=== PATIENT | female | born 2000 | race American Indian/Alaskan Native ===

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

== ENCOUNTER 2018-01-12 21:18 | Emergency (ER) | payer MEDICAID ==
[2018-01-12 23:20] LABS: HCG Qualitative,Urine Positive (Negative)
[2018-01-12 23:43] LABS: Bilirubin,Urine NEG (Negative); Blood,Urine NEG (Negative); Color,Urine Yellow (Yellow); Mucus,Urine 3+ /HPF
--- NOTE | 2018-01-13 00:53 | Emergency Department Report ---
ED Female HPI - General Chief complaint: Urogenital-Female Stated complaint: VAGINAL PAIN Time Seen by Provider: 01/13/18 00:35 Source: patient Mode of arrival: Ambulatory Limitations: No Limitations - History of Present Illness Initial comments: Patient 17-year-old -[place] female A0 presents for vaginal swelling right labia times today patient denies vaginal discharge or abdominal pain no vaginal bleeding no nausea vomiting last menstrual cycle 4 weeks ago last contact 2 weeks ago patient denies dysuria frequency or urgency fever chills MD Complaint: other (vaginal swelling ) Onset/Timin -: Sudden Location: labia Severity: moderate Severity scale (0 -10): 3 Quality: burning Consistency: intermittent Improves with: none Worsens with: none Are you Now?: No Last Menstrual Period: 01/04/18 EDC: 10/11/18 - Related Data Sexually active: Yes : 0 Para: 0 A: 0 Previous Rx's Medication Instructions Recorded Last Taken Type Sulfamethoxazole/Trimethoprim 1 each PO BID #14 tablet 12/29/14 Unknown Rx [Bactrim DS TAB] Gentamicin 0.3% Ophth Oint 1 applicatio OP Q4H #1 tube 06/13/17 Unknown Rx Ibuprofen [Motrin 600 MG tab] 600 mg PO Q8H PRN #15 tablet 06/13/17 Unknown Rx Sulfamethoxazole/Trimethoprim 1 each PO BID #14 tablet 06/13/17 Unknown Rx [Bactrim DS TAB] ALBUTEROL Inhaler (OR & NICU) 2 puff IH QID PRN #1 inhalation 06/26/17 Unknown Rx [ProAir HFA Inhaler] Azithromycin 250 mg PO DAILY #6 tablet 06/26/17 Unknown Rx predniSONE [Deltasone] 50 mg PO QDAY #5 tab 06/26/17 Unknown Rx metroNIDAZOLE 0.75% [Vandazole 1 applicator VG QHS 7 Days #1 tube 01/13/18 Unknown Rx 0.75% VAGINAL] Allergies Allergy/AdvReac Type Severity Reaction Status Date / Time No Known Allergies Allergy Verified 06/13/17 14:11 ED Review of Systems ROS: Stated complaint: VAGINAL PAIN Other details as noted in HPI Constitutional: denies: chills, fever Eyes: denies: eye pain, eye discharge, vision change ENT: denies: ear pain, throat pain Respiratory: denies: cough, shortness of breath, wheezing Cardiovascular: denies: chest pain, palpitations Endocrine: no symptoms reported Gastrointestinal: denies: abdominal pain, nausea, diarrhea Genitourinary: other (labial pain ) Musculoskeletal: denies: back pain, joint swelling, arthralgia Skin: denies: rash, lesions Neurological: denies: headache, weakness, paresthesias Psychiatric: denies: anxiety, depression Hematological/Lymphatic: denies: easy bleeding, easy bruising ED Past Medical Hx - Past Medical History Previous Medical History?: Yes Hx Asthma: Yes - Surgical History Past Surgical History?: No - Social History Smoking Status: Never Smoker Substance Use Type: None - Medications Home Medications: Home Medications Medication Instructions Recorded Confirmed Last Taken Type Sulfamethoxazole/Trimethoprim 1 each PO BID #14 tablet 12/29/14 Unknown Rx [Bactrim DS TAB] Gentamicin 0.3% Ophth Oint 1 applicatio OP Q4H #1 tube 06/13/17 Unknown Rx Ibuprofen [Motrin 600 MG tab] 600 mg PO Q8H PRN #15 tablet 06/13/17 Unknown Rx Sulfamethoxazole/Trimethoprim 1 each PO BID #14 tablet 06/13/17 Unknown Rx [Bactrim DS TAB] ALBUTEROL Inhaler (OR & NICU) 2 puff IH QID PRN #1 inhalation 06/26/17 Unknown Rx [ProAir HFA Inhaler] Azithromycin 250 mg PO DAILY #6 tablet 06/26/17 Unknown Rx predniSONE [Deltasone] 50 mg PO QDAY #5 tab 06/26/17 Unknown Rx metroNIDAZOLE 0.75% [Vandazole 1 applicator VG QHS 7 Days #1 tube 01/13/18 Unknown Rx 0.75% VAGINAL] ED Physical Exam - General Limitations: No Limitations General appearance: alert, in no apparent distress - Head Head exam: Present: atraumatic, normocephalic - Eye Eye exam: Present: normal appearance - ENT ENT exam: Present: mucous membranes moist - Neck Neck exam: Present: normal inspection - Respiratory Respiratory exam: Present: normal lung sounds bilaterally. Absent: respiratory distress - Cardiovascular Cardiovascular Exam: Present: regular rate, normal rhythm. Absent: systolic murmur, diastolic murmur, rubs, gallop - GI/Abdominal GI/Abdominal exam: Present: soft, normal bowel sounds. Absent: tenderness, rigid, bruit, hernia - Rectal Rectal exam: Present: deferred - External exam: Absent: erythema, swelling, lesions, lacerations, ecchymosis, bleeding Speculum exam: Present: erythema, vaginal discharge (white yellow thick , cottage cheese appearance ). Absent: cervical discharge, vaginal bleeding, foreign body, tissue, laceration Bi-manual exam: Present: normal bi-manual exam. Absent: cervical motion tendernes, adnexal tenderness, adnexal mass, uterine enlargement, uterine tenderness - Extremities Exam Extremities exam: Present: normal inspection - Back Exam Back exam: Present: normal inspection - Neurological Exam Neurological exam: Present: alert, oriented X3 - Psychiatric Psychiatric exam: Present: normal affect, normal mood - Skin Skin exam: Present: warm, dry, intact, normal color. Absent: rash ED Course Vital Signs 01/12/18 21:25 Temperature 97.9 F Pulse Rate 94 H Respiratory 14 Rate Blood Pressure 125/72 O2 Sat by Pulse 100 Oximetry ED Medical Decision Making - Radiology Data Radiology results: report reviewed, image reviewed positive twin preg 5 weeks 4 days, - Medical Decision Making Patient is twin 5 weeks in 4 days too early to determine heart tone heart rate follow up with UTILIZATION REVIEW NURSE in 2-3 days for follow- up ultrasounds urine positive for leukocytes bacteria patient concern for STD with question prophylactic treatment , plan: Treatment for UTI STD exposure with DC to home with metronidazole gel patient will follow with Kyara Peñaloza OB/ RN EMERGENCY in 2-3 days patient verbalized agreement and understanding with same, pt for dc to home in stable condition at this time. Critical care attestation.: If time is entered above; I have spent that time in minutes in the direct care of this critically ill patient, excluding procedure time. ED Disposition Clinical Impression: Positive test, STD exposure Twin Qualifiers: Multiple gestation type: unspecified Trimester: first trimester Qualified Code( s): O30.001 - Twin , unspecified number of placenta and unspecified number of amniotic sacs, first trimester UTI (urinary tract infection) during Qualifiers: Trimester: first trimester Qualified Code(s): O23.41 - Unspecified infection of urinary tract in , first trimester Disposition: DC-01 TO HOME OR SELFCARE Is pt being admited?: No Does the pt Need Aspirin: No Condition: Stable Instructions: (ED), Sexually Transmitted Diseases (ED), Urinary Tract Infection in Women (ED) Prescriptions: metroNIDAZOLE 0.75% [Vandazole 0.75% VAGINAL] 1 applicator VG QHS 7 Days #1 tube Referrals: DEANNE VERGARA MD [Staff Physician] - 3-5 Days Forms: Work/School Release Form(ED) Time of Disposition: 04:18
--- NOTE | 2018-01-13 03:09 | Ultrasound Report ---
FINAL REPORT PROCEDURE: US OB < = 14 WEEKS FETUS TECHNIQUE: Real-time transabdominal sonography of the uterus, placenta, amniotic fluid, adnexa, and fetus was performed with image documentation. Measurements were obtained to determine age/size. M-mode Doppler was used to document heartbeat. CPT 64162 HISTORY: vaginal pain COMPARISON: No prior studies are available for comparison. FINDINGS: There are 2 intrauterine gestational sacs measuring 7.8 millimeters and 5.6 millimeters in diameter corresponding to 5 weeks and 4 days and 5 weeks and 2 days estimated gestational age. At this time no yolk sac, pole or cardiac activity is detectable. Followup is recommended. Uterus and ovaries are unremarkable. There no free fluid. IMPRESSION: Probable normal early intrauterine twin as described.
--- NOTE | 2018-01-13 03:10 | Ultrasound Report ---
FINAL REPORT PROCEDURE: US OB TRANSVAGINAL TECHNIQUE: Real-time transvaginal l sonography of the uterus, placenta, amniotic fluid, adnexa, and fetus was performed with image documentation. Measurements were obtained to determine age/size. M-mode Doppler was used to document heartbeat. HISTORY: vaginal pain COMPARISON: No prior studies are available for comparison. FINDINGS: There are 2 intrauterine gestational sacs measuring 7.8 millimeters and 5.6 millimeters in diameter corresponding to 5 weeks and 4 days and 5 weeks and 2 days estimated gestational age. At this time no yolk sac, pole or cardiac activity is detectable. Followup is recommended. Uterus and ovaries are unremarkable. There no free fluid. IMPRESSION: Probable normal early intrauterine twin as described.
[2018-01-13] MEDS ORDERED: ROCEPHIN IM ONE (04:05)
[2018-01-13] MEDS ORDERED: ZITHROMAX PO ONE (04:05)
[2018-01-13] MEDS ORDERED: XYLOCAINE 1% MPF 5 mL INFILTRATI ONE (04:05)
[2018-01-13 04:33] VITALS: BP 132/74
== END 2018-01-13 04:30 | disposition home or self-care (01) ==
LOC: ED 21:18
DX: O30.001 Twin pregnancy, unspecified number of placenta and unspecified number of amniotic sacs, first trimester (principal); O26.891 Other specified pregnancy related conditions, first trimester; O23.41 Unspecified infection of urinary tract in pregnancy, first trimester; O99.52 Diseases of the respiratory system complicating childbirth; Z3A.01 Less than 8 weeks gestation of pregnancy; Z79.899 Other long term (current) drug therapy
CPT/HCPCS: 36415; 76801; 76817; 81001; 81025; 84702; 87086; 87210; 87591; 96372; 99284; J0696

== ENCOUNTER 2018-04-27 00:43 | Emergency (ER) | payer MEDICAID ==
[2018-04-27] MEDS ORDERED: NACL 0.9% 1000 ML 1,000 ML IV ONE (00:58)
[2018-04-27 01:31] LABS: Basophils % (Auto) 0.4 % (0.0-1.8); Eosinophils # (Auto) 0.4 K/mm3 (0.0-0.4); Eosinophils % (Auto) 4.5 % (0.0-4.3); Hematocrit 35.9 % (30.3-42.9); Hemoglobin 12.1 gm/dl (10.1-14.3); Lymphocytes # (Auto) 1.7 K/mm3 (1.2-5.4); Mean Corpuscular HGB Conc 34 % (30-34); Mean Corpuscular Volume 82 fl (79-97); Monocytes # (Auto) 0.8 K/mm3 (0.0-0.8); Platelet Count 182 K/mm3 (140-440); Red Cell Distribution Width 16.8 % (13.2-15.2)
[2018-04-27] MEDS ORDERED: PEPCID PO ONE (01:35)
[2018-04-27] MEDS ORDERED: TYLENOL PO ONE (01:35)
[2018-04-27] MEDS ORDERED: ZOFRAN IV ONE (01:35)
--- NOTE | 2018-04-27 01:40 | Emergency Department Report ---
ED Abdominal Pain HPI - General Chief Complaint: Abdominal Pain Stated Complaint: ABD PAIN 19 WEEKS Time Seen by Provider: 04/27/18 01:28 Source: patient Mode of arrival: Stretcher Limitations: No Limitations - History of Present Illness Initial Comments: 17-year-old female with a past medical history of asthma currently presents to the hospital with her first . Patient's due date is September 15 making her gestational age 19 weeks and 6 days. While sleeping tonight she woke up complaining of intermittent cramping epigastric pain radiating to the back. Pain is 9/10 intensity and worse with palpation. No specific alleviating factors reported. Patient had one episode of vomiting. She denies fever, diarrhea, dysuria, or hematuria. She has received care. Patient's mother at the bedside. Severity scale (0 -10): 9 - Related Data Previous Rx's Medication Instructions Recorded Last Taken Type Sulfamethoxazole/Trimethoprim 1 each PO BID #14 tablet 12/29/14 Unknown Rx [Bactrim DS TAB] Gentamicin 0.3% Ophth Oint 1 applicatio OP Q4H #1 tube 06/13/17 Unknown Rx Ibuprofen [Motrin 600 MG tab] 600 mg PO Q8H PRN #15 tablet 06/13/17 Unknown Rx Sulfamethoxazole/Trimethoprim 1 each PO BID #14 tablet 06/13/17 Unknown Rx [Bactrim DS TAB] ALBUTEROL Inhaler (OR & NICU) 2 puff IH QID PRN #1 inhalation 06/26/17 Unknown Rx [ProAir HFA Inhaler] Azithromycin 250 mg PO DAILY #6 tablet 06/26/17 Unknown Rx predniSONE [Deltasone] 50 mg PO QDAY #5 tab 06/26/17 Unknown Rx metroNIDAZOLE 0.75% [Vandazole 1 applicator VG QHS 7 Days #1 tube 01/13/18 Unknown Rx 0.75% VAGINAL] Acetaminophen [Acetaminophen TAB] 650 mg PO TID #40 tablet 02/04/18 Unknown Rx Pnv No.95/Ferrous Fum/Folic AC 1 each PO DAILY #40 tablet 02/04/18 Unknown Rx [ Vitamin Tablet] Nitrofurantoin Monohyd/M-Cryst 100 mg PO BID #14 capsule 04/06/18 Unknown Rx [Macrobid 100 mg Capsule] Acetaminophen [Tylenol Extra 1 - 2 tab PO Q6HR #20 tablet 04/27/18 Unknown Rx Strength] Acetaminophen [Tylenol Extra 1 - 2 tab PO Q6HR PRN #20 tablet 04/27/18 Unknown Rx Strength] HYDROcodone/APAP 5-325 [[place] 1 each PO Q6HR PRN #10 tablet 04/27/18 Unknown Rx 5/325] Nitrofurantoin Monohyd/M-Cryst 100 mg PO BID #14 capsule 04/27/18 Unknown Rx [Macrobid 100 mg Capsule] Ondansetron [Zofran Odt] 4 mg PO Q8HR PRN #20 tab.rapdis 04/27/18 Unknown Rx Allergies Allergy/AdvReac Type Severity Reaction Status Date / Time No Known Allergies Allergy Verified 06/13/17 14:11 ED Review of Systems ROS: Stated complaint: ABD PAIN 19 WEEKS Other details as noted in HPI Comment: All other systems reviewed and negative ED Past Medical Hx - Past Medical History Previous Medical History?: Yes Hx Asthma: Yes - Surgical History Past Surgical History?: No - Social History Smoking Status: Never Smoker Substance Use Type: None - Medications Home Medications: Home Medications Medication Instructions Recorded Confirmed Last Taken Type Sulfamethoxazole/Trimethoprim 1 each PO BID #14 tablet 12/29/14 Unknown Rx [Bactrim DS TAB] Gentamicin 0.3% Ophth Oint 1 applicatio OP Q4H #1 tube 06/13/17 Unknown Rx Ibuprofen [Motrin 600 MG tab] 600 mg PO Q8H PRN #15 tablet 06/13/17 Unknown Rx Sulfamethoxazole/Trimethoprim 1 each PO BID #14 tablet 06/13/17 Unknown Rx [Bactrim DS TAB] ALBUTEROL Inhaler (OR & NICU) 2 puff IH QID PRN #1 inhalation 06/26/17 Unknown Rx [ProAir HFA Inhaler] Azithromycin 250 mg PO DAILY #6 tablet 06/26/17 Unknown Rx predniSONE [Deltasone] 50 mg PO QDAY #5 tab 06/26/17 Unknown Rx metroNIDAZOLE 0.75% [Vandazole 1 applicator VG QHS 7 Days #1 tube 01/13/18 Unknown Rx 0.75% VAGINAL] Acetaminophen [Acetaminophen TAB] 650 mg PO TID #40 tablet 02/04/18 Unknown Rx Pnv No.95/Ferrous Fum/Folic AC 1 each PO DAILY #40 tablet 02/04/18 Unknown Rx [ Vitamin Tablet] Nitrofurantoin Monohyd/M-Cryst 100 mg PO BID #14 capsule 04/06/18 Unknown Rx [Macrobid 100 mg Capsule] Acetaminophen [Tylenol Extra 1 - 2 tab PO Q6HR #20 tablet 04/27/18 Unknown Rx Strength] Acetaminophen [Tylenol Extra 1 - 2 tab PO Q6HR PRN #20 tablet 04/27/18 Unknown Rx Strength] HYDROcodone/APAP 5-325 [[place] 1 each PO Q6HR PRN #10 tablet 04/27/18 Unknown Rx 5/325] Nitrofurantoin Monohyd/M-Cryst 100 mg PO BID #14 capsule 04/27/18 Unknown Rx [Macrobid 100 mg Capsule] Ondansetron [Zofran Odt] 4 mg PO Q8HR PRN #20 tab.rapdis 04/27/18 Unknown Rx ED Physical Exam - General Limitations: No Limitations - Other Other exam information: General: No limitations, patient is alert in no acute distress Head exam: Atraumatic, normocephalic Eyes exam: Normal appearance, nonicteric sclera ENT: Moist mucous membrane, normal oropharynx Neck exam: Normal inspection, full range of motion, no meningismus nontender Respiratory exam: Clear to auscultation bilateral, no wheezes, rales, crackles Cardiovascular: Normal rate and rhythm, normal heart sounds Abdomen: Soft, nondistended, epigastric tenderness, abdomen without uterine tenderness, with normal bowel sounds, no rebound, or guarding Extremity: Full range of motion normal inspection no deformity Back: Normal Inspection, full range of motion, no tenderness Neurologic: Alert, oriented x3, cranial nerves intact, no motor or sensory deficit Psychiatric: normal affect, normal mood Skin: Warm, dry, intact ED Course Vital Signs 04/27/18 04/27/18 04/27/18 01:24 01:56 03:00 Temperature 97.8 F Pulse Rate 97 H 91 H Respiratory 12 12 16 Rate Blood Pressure 114/76 Blood Pressure 122/60 [Right] O2 Sat by Pulse 98 100 Oximetry 04/27/18 04/27/18 04:00 05:00 Temperature Pulse Rate 79 78 Respiratory 17 17 Rate Blood Pressure 123/66 112/59 Blood Pressure [Right] O2 Sat by Pulse 100 100 Oximetry ED Medical Decision Making - Lab Data Result diagrams: 04/27/18 01:10 04/27/18 01:10 Lab Results 04/27/18 04/27/18 04/27/18 Range/Units 01:10 01:10 01:10 WBC 9.7 (4.5-11.0) K/mm3 RBC 4.40 (3.65-5.03) M/mm3 Hgb 12.1 (10.1-14.3) gm/dl Hct 35.9 (30.3-42.9) % MCV 82 (79-97) fl MCH 28 (28-32) pg MCHC 34 (30-34) % RDW 16.8 H (13.2-15.2) % Plt Count 182 (140-440) K/mm3 Lymph % (Auto) 18.0 (13.4-35.0) % Stephens % (Auto) 8.0 H (0.0-7.3) % Eos % (Auto) 4.5 H (0.0-4.3) % Baso % (Auto) 0.4 (0.0-1.8) % Lymph # 1.7 (1.2-5.4) K/mm3 Stephens # 0.8 (0.0-0.8) K/mm3 Eos # 0.4 (0.0-0.4) K/mm3 Baso # 0.0 (0.0-0.1) K/mm3 Seg Neutrophils % 69.1 (40.0-70.0) % Seg Neutrophils # 6.7 (1.8-7.7) K/mm3 Sodium 137 (137-145) mmol/L Potassium 3.7 (3.6-5.0) mmol/L Chloride 102.8 (98-107) mmol/L Carbon Dioxide 21 L (22-30) mmol/L Anion Gap 17 mmol/L BUN 10 (7-17) mg/dL Creatinine 0.5 L (0.7-1.2) mg/dL Estimated GFR > 60 ml/min BUN/Creatinine Ratio 20 % Glucose 84 (65-100) mg/dL Calcium 9.3 (8.4-10.2) mg/dL Total Bilirubin 0.30 (0.1-1.2) mg/dL AST 18 (5-40) units/L ALT 9 (7-56) units/L Alkaline Phosphatase 55 (35-129) units/L Total Protein 7.1 (6.3-8.2) g/dL Albumin 3.9 (3.9-5) g/dL Albumin/Globulin Ratio 1.2 % Lipase (13-60) units/L HCG, Quant 51161 H (0-4) mIU/mL Urine Color (Yellow) Urine Turbidity (Clear) Urine pH (5.0-7.0) Ur Specific [place] (1.003-1.030) Urine Protein (Negative) mg/dL Urine Glucose (UA) (Negative) mg/dL Urine Ketones (Negative) mg/dL Urine Blood (Negative) Urine Nitrite (Negative) Urine Bilirubin (Negative) Urine Urobilinogen (<2.0) mg/dL Ur Leukocyte Esterase (Negative) Urine WBC (Auto) (0.0-6.0) /HPF Urine RBC (Auto) (0.0-6.0) /HPF U Epithel Cells (Auto) (0-13.0) /HPF Urine Bacteria (Auto) (Negative) /HPF Urine Mucus /HPF Blood Type Antibody Screen 04/27/18 04/27/18 04/27/18 Range/Units 01:10 01:10 02:03 WBC (4.5-11.0) K/mm3 RBC (3.65-5.03) M/mm3 Hgb (10.1-14.3) gm/dl Hct (30.3-42.9) % MCV (79-97) fl MCH (28-32) pg MCHC (30-34) % RDW (13.2-15.2) % Plt Count (140-440) K/mm3 Lymph % (Auto) (13.4-35.0) % Stephens % (Auto) (0.0-7.3) % Eos % (Auto) (0.0-4.3) % Baso % (Auto) (0.0-1.8) % Lymph # (1.2-5.4) K/mm3 Stephens # (0.0-0.8) K/mm3 Eos # (0.0-0.4) K/mm3 Baso # (0.0-0.1) K/mm3 Seg Neutrophils % (40.0-70.0) % Seg Neutrophils # (1.8-7.7) K/mm3 Sodium (137-145) mmol/L Potassium (3.6-5.0) mmol/L Chloride (98-107) mmol/L Carbon Dioxide (22-30) mmol/L Anion Gap mmol/L BUN (7-17) mg/dL Creatinine (0.7-1.2) mg/dL Estimated GFR ml/min BUN/Creatinine Ratio % Glucose (65-100) mg/dL Calcium (8.4-10.2) mg/dL Total Bilirubin (0.1-1.2) mg/dL AST (5-40) units/L ALT (7-56) units/L Alkaline Phosphatase (35-129) units/L Total Protein (6.3-8.2) g/dL Albumin (3.9-5) g/dL Albumin/Globulin Ratio % Lipase 38 (13-60) units/L HCG, Quant (0-4) mIU/mL Urine Color Valerie (Yellow) Urine Turbidity Slightly-cloudy (Clear) Urine pH 5.0 (5.0-7.0) Ur Specific [place] 1.030 (1.003-1.030) Urine Protein <15 mg/dl (Negative) mg/dL Urine Glucose (UA) 50 (Negative) mg/dL Urine Ketones 80 (Negative) mg/dL Urine Blood Neg (Negative) Urine Nitrite Neg (Negative) Urine Bilirubin Neg (Negative) Urine Urobilinogen 4.0 (<2.0) mg/dL Ur Leukocyte Esterase Lg (Negative) Urine WBC (Auto) 30.0 H (0.0-6.0) /HPF Urine RBC (Auto) 4.0 (0.0-6.0) /HPF U Epithel Cells (Auto) 7.0 (0-13.0) /HPF Urine Bacteria (Auto) 1+ (Negative) /HPF Urine Mucus Few /HPF Blood Type A POSITIVE Antibody Screen Negative - Radiology Data Radiology results: report reviewed FINAL REPORT PROCEDURE: US ABDOMEN LIMITED TECHNIQUE: Real-time sonography was performed of the gallbladder with image documentation. CPT 58902 HISTORY: ruq and epigastric pain COMPARISON: No prior studies are available for comparison. FINDINGS: There are stones identified within the gallbladder lumen. Common bile duct is normal. The portion of the, right kidney and pancreas imaged are normal.. IMPRESSION: Cholelithiasis. The remainder of the study is normal. FINAL REPORT PROCEDURE: US OB gt; = 14 WEEKS FETUS TECHNIQUE: Real-time limited sonographic examination was performed for evaluation of wellbeing for each fetus with image documentation (1 or more fetuses). CPT 62135 HISTORY: abd pain +preg COMPARISON: No prior studies are available for comparison. FINDINGS: MATERNAL Uterus: Within normal limits . Cervix length: 3.5 cm. Internal Os: Closed . FETUS IUP: Single living intrauterine . Position: Vertex. Placental position: Anterior, without previa . Amniotic fluid volume: Normal . Heart rate and rhythm: 150 BPM, Regular . anatomic survey: Not performed with this study. MEASUREMENTS BPD: 4.4 centimeter. HC: 16.7 centimete r. AC: 13.5 centimeter. FL: 3.1 centimeter. Mean Gestational Age (composite criteria): 19 weeks 2 days. Ratio biometry: Normal . Estimated Weight: 283 grams. Interval growth: Appropriate . Estimated Due Date (earliest scan): 09/19/2018. IMPRESSION: 1. Single living intrauterine gestation at approximately 19 weeks 2 days. 2. EDC by US 09/19/2018. - Medical Decision Making Patient's pain improved with Tylenol. Ultrasound shows cholelithiasis without cystitis. ultrasound normal. The patient be discharged home with pain medication, nausea medication, H2 cordell and outpatient follow-up - Differential Diagnosis pancreatitis, gastritis, cholecystitis, UTI, premature contractions Critical Care Time: No Critical care attestation.: If time is entered above; I have spent that time in minutes in the direct care of this critically ill patient, excluding procedure time. ED Disposition Clinical Impression: Cholelithiasis, 19 weeks gestation of , Nausea and vomiting, Dehydration, UTI (urinary tract infection) Disposition: -01 TO HOME OR SELFCARE Is pt being admited?: No Does the pt Need Aspirin: No Condition: Stable Instructions: Cholelithiasis (ED), Urinary Tract Infection in Women (ED) Additional Instructions: Take the medication as prescribed. Follow up with your doctor. Return if symptoms worsen as indicated by your discharge instructions. You have also been provided a surgeon for follow-up to discuss options for treatment of your gallbladder. You can take 1 g or 1000 mg of Tylenol every 6 hours. Maximum amount of Tylenol a day is 4 g. Take the [place] for severe pain only. [place] has 325 mg of Tylenol in it. If you take [place] make sure that sure that your total Tylenol ingestion for the day is not greater than 4 g. Prescriptions: Acetaminophen [Tylenol Extra Strength] 1 - 2 tab PO Q6HR PRN #20 tablet PRN Reason: Pain, Moderate (4-6) Acetaminophen [Tylenol Extra Strength] 1 - 2 tab PO Q6HR #20 tablet HYDROcodone/APAP 5-325 [[place] 5/325] 1 each PO Q6HR PRN #10 tablet PRN Reason: Pain Nitrofurantoin Monohyd/M-Cryst [Macrobid 100 mg Capsule] 100 mg PO BID #14 capsule Ondansetron [Zofran Odt] 4 mg PO Q8HR PRN #20 tab.rapdis PRN Reason: Nausea And Vomiting Referrals: your, auto design detailer [Other] - 3-5 Days BISI RICHARDSON MD [Staff Physician] - 3-5 Days (surgeon ) Time of Disposition: 05:59
[2018-04-27 02:27] LABS: Bacteria,Urine 1+ /HPF (Negative); Bilirubin,Urine NEG (Negative); Blood,Urine NEG (Negative); Color,Urine Amber (Yellow); Mucus,Urine FEW /HPF; Protein,Urine <15 mg/dL mg/dL (Negative)
--- NOTE | 2018-04-27 02:46 | Ultrasound Report ---
FINAL REPORT PROCEDURE: US ABDOMEN LIMITED TECHNIQUE: Real-time sonography was performed of the gallbladder with image documentation. CPT 28844 HISTORY: ruq and epigastric pain COMPARISON: No prior studies are available for comparison. FINDINGS: There are stones identified within the gallbladder lumen. Common bile duct is normal. The portion of the, right kidney and pancreas imaged are normal.. IMPRESSION: Cholelithiasis. The remainder of the study is normal.
--- NOTE | 2018-04-27 02:56 | Ultrasound Report ---
FINAL REPORT PROCEDURE: US OB >= 14 WEEKS FETUS TECHNIQUE: Real-time limited sonographic examination was performed for evaluation of wellbeing for each fetus with image documentation (1 or more fetuses). CPT 18804 HISTORY: abd pain +preg COMPARISON: No prior studies are available for comparison. FINDINGS: MATERNAL Uterus: Within normal limits . Cervix length: 3.5 cm. Internal Os: Closed . FETUS IUP: Single living intrauterine . Position: Vertex. Placental position: Anterior, without previa . Amniotic fluid volume: Normal . Heart rate and rhythm: 150 BPM, Regular . anatomic survey: Not performed with this study. MEASUREMENTS BPD: 4.4 centimeter. HC: 16.7 centimeter. AC: 13.5 centimeter. FL: 3.1 centimeter. Mean Gestational Age (composite criteria): 19 weeks 2 days. Ratio biometry: Normal . Estimated Weight: 283 grams. Interval growth: Appropriate . Estimated Due Date (earliest scan): 09/19/2018. IMPRESSION: 1. Single living intrauterine gestation at approximately 19 weeks 2 days. 2. EDC by US 09/19/2018.
[2018-04-27 02:57] LABS: Alanine Aminotransferase 9 units/L (7-56); Albumin 3.9 g/dL (3.9-5); BUN/Creatinine Ratio 20; Blood Urea Nitrogen 10 mg/dL (7-17); Calcium 9.3 mg/dL (8.4-10.2); Hemolysis Index 12
[2018-04-27] MEDS ORDERED: MACROBID PO ONE (03:25)
[2018-04-27] MEDS ORDERED: D5NS 1,000 ML IV SCH (04:00)
[2018-04-27 05:38] VITALS: BP 112/59
== END 2018-04-27 06:31 | disposition home or self-care (01) ==
LOC: ED 00:43
DX: O99.612 Diseases of the digestive system complicating pregnancy, second trimester (principal); K80.20 Calculus of gallbladder without cholecystitis without obstruction; O23.42 Unspecified infection of urinary tract in pregnancy, second trimester; O26.892 Other specified pregnancy related conditions, second trimester; E86.0 Dehydration; O99.512 Diseases of the respiratory system complicating pregnancy, second trimester; J45.909 Unspecified asthma, uncomplicated; Z3A.19 19 weeks gestation of pregnancy
CPT/HCPCS: 36415; 76705; 76805; 80053; 81001; 83690; 84702; 85025; 86850; 86900; 86901; 96361; 96374; 99284; J2405; J7030; J7042

== ENCOUNTER 2018-06-20 05:29 | Outpatient (CLI) | payer MEDICAID ==
[2018-06-20 06:08] VITALS: BP 123/65
[2018-06-20] MEDS ORDERED: LACTATED RINGERS 1,000 ML IV ONE (06:08)
[2018-06-20 06:39] LABS: Bilirubin,Urine NEG (Negative); Blood,Urine NEG (Negative); Color,Urine Yellow (Yellow); Protein,Urine <15 mg/dL mg/dL (Negative); RBC,Urine < 1.0 /HPF (0.0-6.0); Urobilinogen,Urine < 2.0 mg/dL (<2.0)
== END 2018-06-20 08:00 | disposition home or self-care (01) ==
LOC: TRG 05:29
PROVIDERS: ATTEND Obstetrics & Gynecology
DX: O47.02 False labor before 37 completed weeks of gestation, second trimester (principal); O26.892 Other specified pregnancy related conditions, second trimester; J45.909 Unspecified asthma, uncomplicated; Z3A.27 27 weeks gestation of pregnancy
CPT/HCPCS: 59025; 81001; 96360; 96361; J7120

== ENCOUNTER 2018-06-29 20:36 | Outpatient (CLI) | payer MEDICAID ==
[2018-06-29] MEDS ORDERED: LACTATED RINGERS 500 ML IV ONE (21:00)
[2018-06-29] MEDS ORDERED: LACTATED RINGERS 1,000 ML IV SCH (21:00)
[2018-06-29 21:37] LABS: Bilirubin,Urine NEG (Negative); Blood,Urine NEG (Negative); Color,Urine Yellow (Yellow); Mucus,Urine FEW /HPF; Protein,Urine <15 mg/dL mg/dL (Negative)
--- NOTE | 2018-06-29 21:44 | Event Note ---
Date: 06/29/18 Per RN Patient of Dr. Stanford, AJSON 09/15/2018 per patient, complaining of contractions, cervix closed, FHT's cat 1, no US now. Receiving IV and po fluid. UA pending. Will allow home to f/u with her OB after UA results reviewed. Plan of care discussed with SAIGE
[2018-06-29] MEDS ORDERED: BRETHINE SUB-Q SCH (23:00)
[2018-06-29 23:11] VITALS: BP 132/61
== END 2018-06-29 23:57 | disposition home or self-care (01) ==
LOC: TRG 20:36
PROVIDERS: ATTEND Obstetrics & Gynecology
DX: O47.03 False labor before 37 completed weeks of gestation, third trimester (principal); O99.513 Diseases of the respiratory system complicating pregnancy, third trimester; Z3A.28 28 weeks gestation of pregnancy
CPT/HCPCS: 81001; J3105; J7120

== ENCOUNTER 2018-07-10 19:22 | Outpatient (CLI) | payer MEDICAID ==
[2018-07-10] MEDS ORDERED: LACTATED RINGERS 500 ML IV ONE (19:56)
[2018-07-10] MEDS ORDERED: BRETHINE SUB-Q SCH (20:00)
[2018-07-10] MEDS ORDERED: TYLENOL PO ONE ×2 (20:25→20:29)
[2018-07-10] MEDS ORDERED: PHENERGAN PR PRN (20:31)
[2018-07-10 20:39] LABS: Bilirubin,Urine NEG (Negative); Blood,Urine NEG (Negative); Color,Urine Amber (Yellow); Mucus,Urine 3+ /HPF
[2018-07-10 20:47] LABS: Amphetamine Screen,Urine PRESUMPTIVE NEGATIVE; Benzodiazepines Screen,Urine PRESUMPTIVE NEGATIVE; Cannabinoid Screen,Urine PRESUMPTIVE NEGATIVE; Cocaine Screen,Urine PRESUMPTIVE NEGATIVE; Methadone Screen,Urine PRESUMPTIVE NEGATIVE; Opiate Screen,Urine PRESUMPTIVE NEGATIVE
[2018-07-10] MEDS ORDERED: PHENERGAN PR ONE (21:00)
[2018-07-10 21:06] VITALS: BP 108/55
== END 2018-07-10 21:48 | disposition home or self-care (01) ==
LOC: TRG 19:22
PROVIDERS: ATTEND Obstetrics & Gynecology
DX: O62.9 Abnormality of forces of labor, unspecified (principal); O26.893 Other specified pregnancy related conditions, third trimester; M54.9 Dorsalgia, unspecified; O99.513 Diseases of the respiratory system complicating pregnancy, third trimester; J45.909 Unspecified asthma, uncomplicated; Z3A.30 30 weeks gestation of pregnancy
CPT/HCPCS: 59025; 80307; 81001; J7120; 96360

== ENCOUNTER 2018-07-12 21:34 | Outpatient (CLI) | payer MEDICAID ==
[2018-07-12 21:52] VITALS: BP 136/74
[2018-07-12] MEDS ORDERED: LACTATED RINGERS 1,000 ML IV ONE (22:03)
[2018-07-12 22:32] LABS: Bilirubin,Urine NEG (Negative); Blood,Urine NEG (Negative); Color,Urine Yellow (Yellow); Mucus,Urine 2+ /HPF; Protein,Urine <15 mg/dL mg/dL (Negative); WBC,Urine < 1.0 /HPF (0.0-6.0)
== END 2018-07-13 00:42 | disposition home or self-care (01) ==
LOC: TRG 21:34
PROVIDERS: ATTEND Obstetrics & Gynecology
DX: O47.03 False labor before 37 completed weeks of gestation, third trimester (principal); O26.893 Other specified pregnancy related conditions, third trimester; M54.5 Low back pain; R10.30 Lower abdominal pain, unspecified; Z3A.30 30 weeks gestation of pregnancy
CPT/HCPCS: 59025; 81001; 96360; J7120

== ENCOUNTER 2018-10-14 06:23 | Emergency (ER) | payer MEDICAID ==
[2018-10-14 07:26] LABS: HCG Qualitative,Urine Negative (Negative)
[2018-10-14 07:29] LABS: Bilirubin,Urine NEG (Negative); Blood,Urine LG (Negative); Color,Urine Red (Yellow); Mucus,Urine 1+ /HPF
[2018-10-14 07:31] LABS: RBC,Urine > 182.0 /HPF (0.0-6.0)
[2018-10-14] MEDS ORDERED: ZOFRAN ODT PO ONE (08:32)
[2018-10-14] MEDS ORDERED: PEPCID PO ONE (08:32)
[2018-10-14] MEDS ORDERED: IBUPROFEN PO ONE (08:32)
--- NOTE | 2018-10-14 09:09 | Emergency Department Report ---
ED Abdominal Pain HPI - General Chief Complaint: Abdominal Pain Stated Complaint: BACK/ABD PAIN/COTTON IN EAR Time Seen by Provider: 10/14/18 08:06 Source: patient, EMS Mode of arrival: Ambulatory Limitations: No Limitations - History of Present Illness Initial Comments: Patient is a 18-year-old female who is presenting with some generalized abdominal discomfort. Patient states that starting last night she began having some pelvic pain. Patient is on her menses. Patient denies discharge or dysuria. Patient states that her pain is crampy in nature and not in severity. Patient also has had 2 episodes of vomiting as well. She has some epigastric discomfort. Patient believes this may have come from eating some ribs. She denies any diarrhea, cold congestion she was or chills. MD Complaint: abdominal pain -: Last night - Related Data Home Medications Medication Instructions Recorded Confirmed Last Taken Vit,Calc76/Iron/Folic 1 tab PO DAILY 06/20/18 06/20/18 06/19/18 [Pnv 29-1 Tablet] Previous Rx's Medication Instructions Recorded Last Taken Type ALBUTEROL Inhaler (OR & NICU) 2 puff IH QID PRN #1 inhalation 06/26/17 Unknown Rx [ProAir HFA Inhaler] Ibuprofen [Motrin 600 MG tab] 600 mg PO Q8H PRN #20 tablet 10/14/18 Unknown Rx Ondansetron [Zofran Odt] 2 mg PO BID PRN #4 tab.rapdis 10/14/18 Unknown Rx traMADol [Ultram] 50 mg PO Q6HR PRN #12 tablet 10/14/18 Unknown Rx Allergies Allergy/AdvReac Type Severity Reaction Status Date / Time No Known Allergies Allergy Verified 06/13/17 14:11 ED Review of Systems ROS: Stated complaint: BACK/ABD PAIN/COTTON IN EAR Other details as noted in HPI Comment: All other systems reviewed and negative ED Past Medical Hx - Past Medical History Hx Hypertension: No Hx Diabetes: No Hx Deep Vein Thrombosis: No Hx Renal Disease: No Hx Sickle Cell Disease: No Hx Seizures: No Hx Asthma: Yes (used in inhaler this month-June) Hx HIV: No - Social History Smoking Status: Never Smoker - Medications Home Medications: Home Medications Medication Instructions Recorded Confirmed Last Taken Type ALBUTEROL Inhaler (OR & NICU) 2 puff IH QID PRN #1 inhalation 06/26/17 06/20/18 Unknown Rx [ProAir HFA Inhaler] Vit,Calc76/Iron/Folic 1 tab PO DAILY 06/20/18 06/20/18 06/19/18 History [Pnv 29-1 Tablet] Ibuprofen [Motrin 600 MG tab] 600 mg PO Q8H PRN #20 tablet 10/14/18 Unknown Rx Ondansetron [Zofran Odt] 2 mg PO BID PRN #4 tab.rapdis 10/14/18 Unknown Rx traMADol [Ultram] 50 mg PO Q6HR PRN #12 tablet 10/14/18 Unknown Rx ED Physical Exam - General Limitations: No Limitations General appearance: alert, in no apparent distress - Head Head exam: Present: atraumatic, normocephalic - Eye Eye exam: Present: normal appearance - ENT ENT exam: Present: mucous membranes moist - Neck Neck exam: Present: normal inspection - Respiratory Respiratory exam: Present: normal lung sounds bilaterally. Absent: respiratory distress, wheezes, rales, rhonchi - Cardiovascular Cardiovascular Exam: Present: regular rate, normal rhythm. Absent: systolic murmur, diastolic murmur, rubs, gallop - GI/Abdominal GI/Abdominal exam: Present: soft, tenderness, normal bowel sounds. Absent: distended, guarding, rebound - Extremities Exam Extremities exam: Present: normal inspection - Back Exam Back exam: Present: normal inspection - Neurological Exam Neurological exam: Present: alert, oriented X3 - Psychiatric Psychiatric exam: Present: normal affect, normal mood - Skin Skin exam: Present: warm, dry, intact, normal color. Absent: rash ED Course Vital Signs 10/14/18 06:36 Temperature 98.0 F Pulse Rate 71 Respiratory 18 Rate Blood Pressure 116/67 O2 Sat by Pulse 97 Oximetry ED Medical Decision Making - Lab Data Labs 10/14/18 07:09 Urine Color Red Urine Turbidity Cloudy Urine pH 8.0 H Ur Specific [place] 1.021 Urine Protein 100 mg/dl Urine Glucose (UA) Neg Urine Ketones Neg Urine Blood Lg Urine Nitrite Neg Ur Reducing Substances Not Reportable Urine Bilirubin Neg Urine Ictotest Not Reportable Urine Urobilinogen 4.0 Ur Leukocyte Esterase Neg Urine WBC (Auto) 13.0 H Urine RBC (Auto) > 182.0 U Epithel Cells (Auto) 2.0 Urine Mucus 1+ Urine Yeast (Budding) 2+ Urine HCG, Qual Negative - Medical Decision Making Patient likely with 2 separate issues. Patient with some nausea vomiting epigastric discomfort likely secondary to mild gastritis. Patient also with some dysmenorrhea. Patient given meds for symptomatic relief and she'll be discharged home. Critical care attestation.: If time is entered above; I have spent that time in minutes in the direct care of this critically ill patient, excluding procedure time. ED Disposition Clinical Impression: Dysmenorrhea, Yeast infection Acute gastritis Qualifiers: Gastritis type: unspecified gastritis Gastritis bleeding: without bleeding Qualified Code(s): K29.00 - Acute gastritis without bleeding Disposition: DC-01 TO HOME OR SELFCARE Is pt being admited?: No Does the pt Need Aspirin: No Condition: Stable Instructions: Gastritis (ED), Dysmenorrhea (ED) Referrals: BARBARA OLIVIER MD [Primary Care Provider] - 3-5 Days Time of Disposition: 09:14
[2018-10-14] MEDS ORDERED: DIFLUCAN PO ONE (10:00)
[2018-10-14 10:07] VITALS: BP 115/70
== END 2018-10-14 10:07 | disposition home or self-care (01) ==
LOC: ED 06:23
DX: K29.00 Acute gastritis without bleeding (principal); B37.9 Candidiasis, unspecified; N94.6 Dysmenorrhea, unspecified; J45.909 Unspecified asthma, uncomplicated; Z79.899 Other long term (current) drug therapy
CPT/HCPCS: 81001; 81025; 87086; Q0162

== ENCOUNTER 2018-12-12 13:41 | Emergency (ER) | payer MEDICAID ==
[2018-12-12 13:56] VITALS: BP 121/81
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
--- NOTE | 2018-12-12 14:38 | XRay Report ---
Cervical spine, 3 views INDICATION: neck pain. COMPARISON: None. IMPRESSION: Normal alignment. No significant discogenic DJD or facet arthropathy. No acute osseous or soft tissue abnormality. Signer Name: Nate Santos Jr, MD Signed: 12/12/2018 2:34 PM Workstation Name: [id number]
[2018-12-12] MEDS ORDERED: IBUPROFEN PO ONE (14:51)
[2018-12-12] MEDS ORDERED: FLEXERIL PO ONE (14:51)
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
[2018-12-12] MEDS ORDERED: DELTASONE PO NR (15:00)
== END 2018-12-12 15:30 | disposition home or self-care (01) ==
LOC: ED 13:41
DX: M62.838 Other muscle spasm (principal); M54.5 Low back pain; M54.6 Pain in thoracic spine; M54.2 Cervicalgia; Z79.899 Other long term (current) drug therapy; V89.2XXA Person injured in unspecified motor-vehicle accident, traffic, initial encounter; Y93.89 Activity, other specified; Y92.488 Other paved roadways as the place of occurrence of the external cause; Y99.8 Other external cause status
CPT/HCPCS: 72040; 99283; J7512

== ENCOUNTER 2019-04-23 06:42 | Emergency (ER) | payer MEDICAID ==
[2019-04-23 06:50] VITALS: BP 128/71
[2019-04-23] MEDS ORDERED: AMOXICILLIN 500 MG CAP PO ONE (09:46)
[2019-04-23] MEDS ORDERED: IBUPROFEN 800 MG TAB PO ONE (09:46)
--- NOTE | 2019-04-23 09:46 | Emergency Department Report ---
Minor Respiratory - HPI Chief Complaint: Sore Throat Stated Complaint: SORE THROAT Time Seen by Provider: 04/23/19 09:44 Duration: 3 Days Pain Location: Throat Severity: mild Minor Respiratory: Yes Sore Throat, Yes Able to Tolerate Fluids, No Rhinorrhea, No Ear Pain, No Cough, No Sick Contacts, No Hemoptysis, No Chest Pain, No Shortness of Breath, No Fever Other History: 18 yo AA female with 3 day hx sore throat and chills. no cough. Has . ED Review of Systems ROS: Stated complaint: SORE THROAT Other details as noted in HPI Comment: All other systems reviewed and negative ED Past Medical Hx - Past Medical History Previous Medical History?: Yes Hx Hypertension: No Hx Diabetes: No Hx Deep Vein Thrombosis: No Hx Renal Disease: No Hx Sickle Cell Disease: No Hx Seizures: No Hx Asthma: Yes Hx HIV: No - Surgical History Past Surgical History?: No - Family History Family history: no significant - Social History Smoking Status: Never Smoker Substance Use Type: None - Medications Home Medications: Home Medications Medication Instructions Recorded Confirmed Last Taken Type Albuterol INH(or & Nicu Only) 2 puff IH QID PRN #1 inhalation 06/26/17 06/20/18 Unknown Rx [ProAir HFA Inhaler] Vit,Calc76/Iron/Folic 1 tab PO DAILY 06/20/18 06/20/18 06/19/18 History [Pnv 29-1 Tablet] Ibuprofen [Motrin 600 MG tab] 600 mg PO Q8H PRN #20 tablet 10/14/18 Unknown Rx Cyclobenzaprine [Flexeril] 10 mg PO TID PRN #10 tablet 12/12/18 Unknown Rx Ibuprofen [Motrin] 800 mg PO Q8HR PRN #20 tablet 12/12/18 Unknown Rx predniSONE [Deltasone] 20 mg PO DAILY #5 tablet 12/12/18 Unknown Rx Amoxicillin [Trimox CAP] 500 mg PO Q8H #30 capsule 04/23/19 Unknown Rx Minor Respiratory Exam - Exam General: Vital signs noted. No distress. Alert and acting appropriately. HEENT: Yes Pharyngeal Erythema, Yes Pharyngeal Exudates, Yes Moist Mucous Membranes, No Rhinorrhea, No Conjuctival Injection, No Frontal Tenderness, No Maxillary Tenderness Ear: Neither TM Bulge, Neither TM Erythema, Neither EAC Pain, Neither EAC Discharge Neck: Yes Supple, No Adenopathy Lungs: Yes Good Air Exchange, No Wheezes, No Ronchi, No Stridor, No Cough, No Labored Respirations, No Retractions, No Use of Accessory Muscles, No Other Abnormal Lung Sounds Heart: Yes Regular, No Murmur Abdomen: Yes Normal Bowel Sounds, No Tenderness, No Peritoneal Signs Skin: No Rash, No Edema Neurologic: Alert and oriented, no deficits. Musculoskeletal: Unremarkable. ED Course Vital Signs 04/23/19 06:48 Temperature 99.1 F Pulse Rate 122 H Respiratory 20 Rate Blood Pressure 128/71 O2 Sat by Pulse 98 Oximetry ED Medical Decision Making - Medical Decision Making strep pos dc home with dc poc taking po abc intact controlling secretions Lab Results 04/23/19 Range/Units Unknown Group A Strep Rapid Positive A (Negative) Vital Signs 04/23/19 06:48 Temperature 99.1 F Pulse Rate 122 H Respiratory 20 Rate Blood Pressure 128/71 O2 Sat by Pulse 98 Oximetry HR on exam 100 - Differential Diagnosis uri Critical care attestation.: If time is entered above; I have spent that time in minutes in the direct care of this critically ill patient, excluding procedure time. ED Disposition Clinical Impression: Strep throat Disposition: DC-01 TO HOME OR SELFCARE Is pt being admited?: No Does the pt Need Aspirin: No Condition: Stable Instructions: Strep Throat (ED) Additional Instructions: meds as ordered good hand washing follow up with pcp referral below stay well hydrated Referrals: BARBARA OLIVIER MD [Staff Physician] - 3-5 Days Time of Disposition: 09:56
== END 2019-04-23 10:11 | disposition home or self-care (01) ==
LOC: ED 06:42
DX: J02.0 Streptococcal pharyngitis (principal); J45.909 Unspecified asthma, uncomplicated; Z79.899 Other long term (current) drug therapy
CPT/HCPCS: 87430

== ENCOUNTER 2021-03-05 14:04 | Emergency (ER) | payer MEDICAID ==
--- NOTE | 2021-03-05 14:26 | Emergency Department Report ---
ED ENT HPI - General Chief complaint: Upper Respiratory Infection Stated complaint: COUGH WITH BACK PAIN, HEADACHE, SORE THROAT Time Seen by Provider: 03/05/21 14:16 Source: patient Mode of arrival: Ambulatory Limitations: No Limitations - History of Present Illness Initial comments: The patient was evaluated in the emergency department for symptoms described in the history of present illness. He/she was evaluated in the context of the global COVID-19 pandemic, which necessitated consideration that the patient might be at risk for infection with the virus that causes COVID-19. Institutional protocols and algorithms that pertain to the evaluation of patients at risk for COVID-19 are in a state of rapid change based on information released by regulatory bodies including the CDC and federal and state organizations. These policies and algorithms were followed during the patient's care in the emergency department. Please note that these policies, procedures and recommendations changed on a rapid basis. 20-year-old -[place] female presents to the emergency room reporting she is having intermittent sharp head pain for a year and a half. She denies any injury. She has not seen a provider even though she has 1. She also complains of a sore throat for 2 days. Denies any cough no nausea no vomiting no fever no chills no chest pain. She is not vaccinated for Covid. States has been taking cough drops. She has not taken any ibuprofen or Tylenol for her pain. MD complaint: sore throat - Related Data Home Medications Medication Instructions Recorded Confirmed Last Taken Vit,Calc76/Iron/Folic 1 tab PO DAILY 06/20/18 06/20/18 06/19/18 [Pnv 29-1 Tablet] Previous Rx's Medication Instructions Recorded Last Taken Type Albuterol Mdi (or & Nicu Only) 2 puff IH QID PRN #1 inhalation 06/26/17 Unknown Rx [ProAir HFA Inhaler] Ibuprofen [Motrin 600 MG tab] 600 mg PO Q8H PRN #20 tablet 10/14/18 Unknown Rx Cyclobenzaprine [Flexeril] 10 mg PO TID PRN #10 tablet 12/12/18 Unknown Rx Ibuprofen [Motrin] 800 mg PO Q8HR PRN #20 tablet 12/12/18 Unknown Rx predniSONE [Deltasone] 20 mg PO DAILY #5 tablet 12/12/18 Unknown Rx Amoxicillin [Trimox CAP] 500 mg PO Q8H #30 capsule 04/23/19 Unknown Rx Allergies Allergy/AdvReac Type Severity Reaction Status Date / Time No Known Allergies Allergy Verified 06/13/17 14:11 ED Dental HPI - General Chief complaint: Upper Respiratory Infection Stated complaint: COUGH WITH BACK PAIN, HEADACHE, SORE THROAT Time Seen by Provider: 03/05/21 14:16 Source: patient Mode of arrival: Ambulatory Limitations: No Limitations - Related Data Home Medications Medication Instructions Recorded Confirmed Last Taken Vit,Calc76/Iron/Folic 1 tab PO DAILY 06/20/18 06/20/18 06/19/18 [Pnv 29-1 Tablet] Previous Rx's Medication Instructions Recorded Last Taken Type Albuterol Mdi (or & Nicu Only) 2 puff IH QID PRN #1 inhalation 06/26/17 Unknown Rx [ProAir HFA Inhaler] Ibuprofen [Motrin 600 MG tab] 600 mg PO Q8H PRN #20 tablet 10/14/18 Unknown Rx Cyclobenzaprine [Flexeril] 10 mg PO TID PRN #10 tablet 12/12/18 Unknown Rx Ibuprofen [Motrin] 800 mg PO Q8HR PRN #20 tablet 12/12/18 Unknown Rx predniSONE [Deltasone] 20 mg PO DAILY #5 tablet 12/12/18 Unknown Rx Amoxicillin [Trimox CAP] 500 mg PO Q8H #30 capsule 04/23/19 Unknown Rx Allergies Allergy/AdvReac Type Severity Reaction Status Date / Time No Known Allergies Allergy Verified 06/13/17 14:11 ED Review of Systems ROS: Stated complaint: COUGH WITH BACK PAIN, HEADACHE, SORE THROAT Other details as noted in HPI ED Past Medical Hx - Past Medical History Previous Medical History?: Yes Hx Hypertension: No Hx Diabetes: No Hx Deep Vein Thrombosis: No Hx Renal Disease: No Hx Sickle Cell Disease: No Hx Seizures: No Hx Asthma: Yes Hx HIV: No - Social History Smoking Status: Never Smoker Substance Use Type: None - Medications Home Medications: Home Medications Medication Instructions Recorded Confirmed Last Taken Type Albuterol Mdi (or & Nicu Only) 2 puff IH QID PRN #1 inhalation 06/26/17 06/20/18 Unknown Rx [ProAir HFA Inhaler] Vit,Calc76/Iron/Folic 1 tab PO DAILY 06/20/18 06/20/18 06/19/18 History [Pnv 29-1 Tablet] Ibuprofen [Motrin 600 MG tab] 600 mg PO Q8H PRN #20 tablet 10/14/18 Unknown Rx Cyclobenzaprine [Flexeril] 10 mg PO TID PRN #10 tablet 12/12/18 Unknown Rx Ibuprofen [Motrin] 800 mg PO Q8HR PRN #20 tablet 12/12/18 Unknown Rx predniSONE [Deltasone] 20 mg PO DAILY #5 tablet 12/12/18 Unknown Rx Amoxicillin [Trimox CAP] 500 mg PO Q8H #30 capsule 04/23/19 Unknown Rx ED Physical Exam - General Limitations: No Limitations General appearance: alert, in no apparent distress - Head Head exam: Present: atraumatic, normocephalic - Eye Eye exam: Present: normal appearance - ENT ENT exam: Present: mucous membranes dry - Expanded ENT Exam Expanded Throat exam: Positive: tonsillar erythema, tonsillomegaly - Neck Neck exam: Present: normal inspection - Respiratory Respiratory exam: Present: normal lung sounds bilaterally. Absent: respiratory distress - Cardiovascular Cardiovascular Exam: Present: regular rate, normal rhythm. Absent: systolic murmur, diastolic murmur, rubs, gallop - GI/Abdominal GI/Abdominal exam: Present: soft, normal bowel sounds - Extremities Exam Extremities exam: Present: normal inspection - Back Exam Back exam: Present: normal inspection - Neurological Exam Neurological exam: Present: alert, oriented X3 - Psychiatric Psychiatric exam: Present: normal affect, normal mood - Skin Skin exam: Present: warm, dry, intact, normal color. Absent: rash ED Course Vital Signs 03/05/21 14:11 Temperature 98.2 F Pulse Rate 113 H Respiratory 20 Rate Blood Pressure 127/79 [Right] O2 Sat by Pulse 98 Oximetry ED Medical Decision Making - Medical Decision Making 20-year-old -[place] female presents to the emergency room reporting she is having intermittent sharp head pain for a year and a half. She denies any injury. She has not seen a provider even though she has 1. She also complains of a sore throat for 2 days. Denies any cough no nausea no vomiting no fever no chills no chest pain. She is not vaccinated for Covid. States has been taking cough drops. She has not taken any ibuprofen or Tylenol for her pain. Rapid strep has been ordered. Headache to be followed up by her primary care provider. Critical care attestation.: If time is entered above; I have spent that time in minutes in the direct care of this critically ill patient, excluding procedure time. ED Disposition Clinical Impression: Pharyngitis, acute, Chronic headaches Disposition: HOME / SELF CARE / HOMELESS Is pt being admited?: No Does the pt Need Aspirin: No Condition: Stable Instructions: Pharyngitis, [id number] Additional Instructions: Strep test is negative. Chronic headaches follow-up with your primary care provider. Tylenol ibuprofen for pain. Increase your fluid intake advance your diet as tolerated. Referrals: BARBARA OLIVIER MD [Staff Physician] - 3-5 Days CLAUDE DUBON MD [Referring] - 3-5 Days Time of Disposition: 14:56
[2021-03-05 15:00] VITALS: BP 141/85
== END 2021-03-05 15:00 | disposition home or self-care (01) ==
LOC: ED 14:04
DX: J02.9 Acute pharyngitis, unspecified (principal); R51.9 Headache, unspecified; J45.909 Unspecified asthma, uncomplicated; Z79.899 Other long term (current) drug therapy
CPT/HCPCS: 87116; 87430; 99283

== ENCOUNTER 2021-05-19 23:03 | Emergency (ER) | payer MEDICAID ==
[2021-05-20] MEDS ORDERED: dexAMETHasone 20 MG/5 ML VIAL IM ONE (04:45)
--- NOTE | 2021-05-20 04:56 | Emergency Department Report ---
ED ENT HPI - General Chief complaint: Earache Stated complaint: THROAT AND EAR PAIN X 2 DAYS Time Seen by Provider: 05/20/21 04:36 Source: patient Mode of arrival: Ambulatory Limitations: No Limitations - History of Present Illness Initial comments: Patient is a 20-year-old female presents emergency room complaints of a sore throat that began a couple days ago. She has associated discomfort with swallowing. She states yesterday she was having vomiting with a resolved and she has not had any further vomiting. She states it feels like her throat is swollen. She also has left ear discomfort. She denies any fever, diarrhea, cough, shortness of breath, ear drainage, anything getting in the ear. Denies any known sick contacts or recent travel. No past medical history. No allergies to medications. Last menstrual cycle 04/27/2021 and she denies any possibility of . - Related Data Home Medications Medication Instructions Recorded Confirmed Last Taken Vit,Calc76/Iron/Folic 1 tab PO DAILY 06/20/18 06/20/18 06/19/18 [Pnv 29-1 Tablet] Previous Rx's Medication Instructions Recorded Last Taken Type Albuterol Mdi (or & Nicu Only) 2 puff IH QID PRN #1 inhalation 06/26/17 Unknown Rx [ProAir HFA Inhaler] Ibuprofen [Motrin 600 MG tab] 600 mg PO Q8H PRN #20 tablet 10/14/18 Unknown Rx Cyclobenzaprine [Flexeril] 10 mg PO TID PRN #10 tablet 12/12/18 Unknown Rx Ibuprofen [Motrin] 800 mg PO Q8HR PRN #20 tablet 12/12/18 Unknown Rx predniSONE [Deltasone] 20 mg PO DAILY #5 tablet 12/12/18 Unknown Rx Amoxicillin [Trimox CAP] 500 mg PO Q8H #30 capsule 04/23/19 Unknown Rx Naproxen 375 mg PO BID PRN #14 tab 05/20/21 Unknown Rx Nystas/Diphen/Xyl Visc/Mylanta 30 ml MM Q4H PRN #300 ml 05/20/21 Unknown Rx [Magic Mouthwash] Penicillin V Potassium 500 mg PO BID 10 Days #20 tab 05/20/21 Unknown Rx Allergies Allergy/AdvReac Type Severity Reaction Status Date / Time No Known Allergies Allergy Verified 06/13/17 14:11 ED Dental HPI - General Chief complaint: Earache Stated complaint: THROAT AND EAR PAIN X 2 DAYS Time Seen by Provider: 05/20/21 04:36 Source: patient Mode of arrival: Ambulatory Limitations: No Limitations - Related Data Home Medications Medication Instructions Recorded Confirmed Last Taken Vit,Calc76/Iron/Folic 1 tab PO DAILY 06/20/18 06/20/18 06/19/18 [Pnv 29-1 Tablet] Previous Rx's Medication Instructions Recorded Last Taken Type Albuterol Mdi (or & Nicu Only) 2 puff IH QID PRN #1 inhalation 06/26/17 Unknown Rx [ProAir HFA Inhaler] Ibuprofen [Motrin 600 MG tab] 600 mg PO Q8H PRN #20 tablet 10/14/18 Unknown Rx Cyclobenzaprine [Flexeril] 10 mg PO TID PRN #10 tablet 12/12/18 Unknown Rx Ibuprofen [Motrin] 800 mg PO Q8HR PRN #20 tablet 12/12/18 Unknown Rx predniSONE [Deltasone] 20 mg PO DAILY #5 tablet 12/12/18 Unknown Rx Amoxicillin [Trimox CAP] 500 mg PO Q8H #30 capsule 04/23/19 Unknown Rx Naproxen 375 mg PO BID PRN #14 tab 05/20/21 Unknown Rx Nystas/Diphen/Xyl Visc/Mylanta 30 ml MM Q4H PRN #300 ml 05/20/21 Unknown Rx [Magic Mouthwash] Penicillin V Potassium 500 mg PO BID 10 Days #20 tab 05/20/21 Unknown Rx Allergies Allergy/AdvReac Type Severity Reaction Status Date / Time No Known Allergies Allergy Verified 06/13/17 14:11 ED Review of Systems ROS: Stated complaint: THROAT AND EAR PAIN X 2 DAYS Other details as noted in HPI Comment: All other systems reviewed and negative ED Past Medical Hx - Past Medical History Previous Medical History?: Yes Hx Hypertension: No Hx Diabetes: No Hx Deep Vein Thrombosis: No Hx Renal Disease: No Hx Sickle Cell Disease: No Hx Seizures: No Hx Asthma: Yes Hx HIV: No - Surgical History Past Surgical History?: No - Social History Smoking Status: Never Smoker Substance Use Type: None - Medications Home Medications: Home Medications Medication Instructions Recorded Confirmed Last Taken Type Albuterol Mdi (or & Nicu Only) 2 puff IH QID PRN #1 inhalation 06/26/17 06/20/18 Unknown Rx [ProAir HFA Inhaler] Vit,Calc76/Iron/Folic 1 tab PO DAILY 06/20/18 06/20/18 06/19/18 History [Pnv 29-1 Tablet] Ibuprofen [Motrin 600 MG tab] 600 mg PO Q8H PRN #20 tablet 10/14/18 Unknown Rx Cyclobenzaprine [Flexeril] 10 mg PO TID PRN #10 tablet 12/12/18 Unknown Rx Ibuprofen [Motrin] 800 mg PO Q8HR PRN #20 tablet 12/12/18 Unknown Rx predniSONE [Deltasone] 20 mg PO DAILY #5 tablet 12/12/18 Unknown Rx Amoxicillin [Trimox CAP] 500 mg PO Q8H #30 capsule 04/23/19 Unknown Rx Naproxen 375 mg PO BID PRN #14 tab 05/20/21 Unknown Rx Nystas/Diphen/Xyl Visc/Mylanta 30 ml MM Q4H PRN #300 ml 05/20/21 Unknown Rx [Magic Mouthwash] Penicillin V Potassium 500 mg PO BID 10 Days #20 tab 05/20/21 Unknown Rx ED Physical Exam - General Limitations: No Limitations General appearance: alert, in no apparent distress - Head Head exam: Present: atraumatic, normocephalic - Eye Eye exam: Present: normal appearance - ENT ENT exam: Present: mucous membranes moist, TM's normal bilaterally, normal external ear exam, other (bilateral tonsillar hypertrophy with exudates, uvula is midline, no uvular edema or deviation, no trismus, no tongue elevation, no muffled voice, no submandibular edema) - Neck Neck exam: Present: lymphadenopathy (left anterior cervical LAD) - Respiratory Respiratory exam: Present: normal lung sounds bilaterally. Absent: respiratory distress, wheezes, rales, rhonchi, stridor, chest wall tenderness, accessory muscle use, decreased breath sounds, prolonged expiratory - Cardiovascular Cardiovascular Exam: Present: regular rate, normal rhythm, normal heart sounds. Absent: systolic murmur, diastolic murmur, rubs, gallop - Neurological Exam Neurological exam: Present: alert, oriented X3 - Psychiatric Psychiatric exam: Present: normal affect, normal mood - Skin Skin exam: Present: warm, dry, intact ED Course Vital Signs 05/20/21 05/20/21 02:28 05:59 Temperature 98.3 F Pulse Rate 100 H 90 Respiratory 18 20 Rate Blood Pressure 157/101 Blood Pressure 138/86 [Right] O2 Sat by Pulse 99 99 Oximetry ED Medical Decision Making - Lab Data Vital Signs 05/20/21 05/20/21 02:28 05:59 Temperature 98.3 F Pulse Rate 100 H 90 Respiratory 18 20 Rate Blood Pressure 157/101 Blood Pressure 138/86 [Right] O2 Sat by Pulse 99 99 Oximetry - Medical Decision Making Patient is a 20-year-old female presents emergency room complaints of a sore throat that began a couple days ago. She has associated discomfort with swallowing. She states yesterday she was having vomiting with a resolved and she has not had any further vomiting. She states it feels like her throat is swollen. She also has left ear discomfort. She denies any fever, diarrhea, cough, shortness of breath, ear drainage, anything getting in the ear. Denies any known sick contacts or recent travel. No past medical history. No allergies to medications. Last menstrual cycle 04/27/2021 and she denies any possibility of . Vitals are stable. On exam:bilateral tonsillar hypertrophy with exudates, uvula is midline, no uvular edema or deviation, no trismus, no tongue elevation, no muffled voice, no submandibular edema, TMs and canals are normal bilaterally, there is left anterior cervical lymphadenopathy. Given sore throat with tonsillar hypertrophy and exudates and lymphadenopathy present and absence of cough, patient will be started on antibiotics. Patient has no clinical signs of peritonsillar abscess at this time, she does have some swelling present of the tonsils but her airway is intact, patient given IM dexamethasone. Advised patient Please take medication as prescribed. Increase your fluid intake. Gargle with warm salt water. After you have been on antibiotics for 24 hours please throw away your toothbrush and obtain a new toothbrush. Do not drink after others or allow others to drink after you. Follow-up with a primary care doctor for reexamination. Return to emergency room for any new or worsening symptoms. Critical care attestation.: If time is entered above; I have spent that time in minutes in the direct care of this critically ill patient, excluding procedure time. ED Disposition Clinical Impression: Tonsillitis, LAD (lymphadenopathy) Otalgia Qualifiers: Laterality: left Qualified Code(s): H92.02 - Otalgia, left ear Disposition: 01 HOME / SELF CARE / HOMELESS Is pt being admited?: No Does the pt Need Aspirin: No Condition: Stable Additional Instructions: Please take medication as prescribed. Increase your fluid intake. Gargle with warm salt water. After you have been on antibiotics for 24 hours please throw away your toothbrush and obtain a new toothbrush. Do not drink after others or allow others to drink after you. Follow-up with a primary care doctor for reexamination. Return to emergency room for any new or worsening symptoms. Prescriptions: Nystas/Diphen/Xyl Visc/Mylanta [Magic Mouthwash] 30 ml MM Q4H PRN #300 ml PRN Reason: sore throat Naproxen 375 mg PO BID PRN #14 tab PRN Reason: pain Penicillin V Potassium 500 mg PO BID 10 Days #20 tab Referrals: BARBARA OLIVIER MD [Staff Physician] - 3-5 Days [facility] [Provider Group] - 3-5 Days Time of Disposition: 04:54 Print Language: MOROCCAN
[2021-05-20 06:01] VITALS: BP 138/86
== END 2021-05-20 05:59 | disposition home or self-care (01) ==
LOC: ED 23:03
DX: J03.90 Acute tonsillitis, unspecified (principal); R59.1 Generalized enlarged lymph nodes; H92.02 Otalgia, left ear; Z79.899 Other long term (current) drug therapy
CPT/HCPCS: 96372; 99282; J1100

== ENCOUNTER 2021-06-18 10:12 | Emergency (ER) | payer MEDICAID ==
[2021-06-18] MEDS ORDERED: IBUPROFEN 800 MG TAB PO STA (11:43)
[2021-06-18] MEDS ORDERED: ACETAMINOPHEN 500 MG TAB PO STA (11:43)
--- NOTE | 2021-06-18 11:45 | Emergency Department Report ---
ED General Adult HPI - General Chief complaint: Extremity Injury, Lower Stated complaint: RT ANKLE SWELLING Time Seen by Provider: 06/18/21 10:48 Source: patient Mode of arrival: Ambulatory Limitations: No Limitations - History of Present Illness Initial comments: 20-year-old -[place] female patient presents with complaints of right ankle pain x yesterday. Patient states she injured her ankle with a twisting injury while walking. She rates her pain as 8/10 in severity and also states there is some swelling. She denies any numbness/tingling or weakness in the foot, skin changes, or bruising. She has not tried any OTC medications for symptoms. Pain worsens with touch and with movement and ambulation per pain - Related Data Home Medications Medication Instructions Recorded Confirmed Last Taken Vit,Calc76/Iron/Folic 1 tab PO DAILY 06/20/18 06/20/18 06/19/18 [Pnv 29-1 Tablet] Previous Rx's Medication Instructions Recorded Last Taken Type Albuterol Mdi (or & Nicu Only) 2 puff IH QID PRN #1 inhalation 06/26/17 Unknown Rx [ProAir HFA Inhaler] Ibuprofen [Motrin 600 MG tab] 600 mg PO Q8H PRN #20 tablet 10/14/18 Unknown Rx Cyclobenzaprine [Flexeril] 10 mg PO TID PRN #10 tablet 12/12/18 Unknown Rx Ibuprofen [Motrin] 800 mg PO Q8HR PRN #20 tablet 12/12/18 Unknown Rx predniSONE [Deltasone] 20 mg PO DAILY #5 tablet 12/12/18 Unknown Rx Amoxicillin [Trimox CAP] 500 mg PO Q8H #30 capsule 04/23/19 Unknown Rx Naproxen 375 mg PO BID PRN #14 tab 05/20/21 Unknown Rx Nystas/Diphen/Xyl Visc/Mylanta 30 ml MM Q4H PRN #300 ml 05/20/21 Unknown Rx [Magic Mouthwash] Penicillin V Potassium 500 mg PO BID 10 Days #20 tab 05/20/21 Unknown Rx Naproxen [Naprosyn] 500 mg PO BID PRN #20 tab 06/18/21 Unknown Rx Allergies Allergy/AdvReac Type Severity Reaction Status Date / Time No Known Allergies Allergy Verified 06/13/17 14:11 ED Review of Systems ROS: Stated complaint: RT ANKLE SWELLING Other details as noted in HPI Musculoskeletal: joint swelling Skin: denies: change in color Neurological: denies: numbness, paresthesias ED Past Medical Hx - Past Medical History Hx Hypertension: No Hx Diabetes: No Hx Deep Vein Thrombosis: No Hx Renal Disease: No Hx Sickle Cell Disease: No Hx Seizures: No Hx Asthma: Yes Hx HIV: No - Social History Smoking Status: Never Smoker Substance Use Type: None - Medications Home Medications: Home Medications Medication Instructions Recorded Confirmed Last Taken Type Albuterol Mdi (or & Nicu Only) 2 puff IH QID PRN #1 inhalation 06/26/17 06/20/18 Unknown Rx [ProAir HFA Inhaler] Vit,Calc76/Iron/Folic 1 tab PO DAILY 06/20/18 06/20/18 06/19/18 History [Pnv 29-1 Tablet] Ibuprofen [Motrin 600 MG tab] 600 mg PO Q8H PRN #20 tablet 10/14/18 Unknown Rx Cyclobenzaprine [Flexeril] 10 mg PO TID PRN #10 tablet 12/12/18 Unknown Rx Ibuprofen [Motrin] 800 mg PO Q8HR PRN #20 tablet 12/12/18 Unknown Rx predniSONE [Deltasone] 20 mg PO DAILY #5 tablet 12/12/18 Unknown Rx Amoxicillin [Trimox CAP] 500 mg PO Q8H #30 capsule 04/23/19 Unknown Rx Naproxen 375 mg PO BID PRN #14 tab 05/20/21 Unknown Rx Nystas/Diphen/Xyl Visc/Mylanta 30 ml MM Q4H PRN #300 ml 05/20/21 Unknown Rx [Magic Mouthwash] Penicillin V Potassium 500 mg PO BID 10 Days #20 tab 05/20/21 Unknown Rx Naproxen [Naprosyn] 500 mg PO BID PRN #20 tab 06/18/21 Unknown Rx ED Physical Exam - General Limitations: No Limitations General appearance: alert, in no apparent distress, obese - Head Head exam: Present: atraumatic, normocephalic - Eye Eye exam: Present: normal appearance - Respiratory Respiratory exam: Absent: respiratory distress - Cardiovascular Cardiovascular Exam: Present: regular rate - Extremities Exam Extremities exam: Present: joint swelling (Tenderness to palpation with mild swelling noted to right lateral malleolus and lower fibula; no skin changes noted; normal pedal pulses noted; range of motion is limited due to pain) - Neurological Exam Neurological exam: Present: alert, oriented X3, abnormal gait (Antalgic) - Psychiatric Psychiatric exam: Present: normal affect, normal mood - Skin Skin exam: Present: warm, dry, intact, normal color. Absent: rash ED Course Vital Signs 06/18/21 10:41 Temperature 98.3 F Pulse Rate 86 Respiratory 16 Rate Blood Pressure 148/70 [Left] O2 Sat by Pulse 97 Oximetry ED Medical Decision Making - Radiology Data Radiology results: report reviewed RIGHT ANKLE 3 VIEWS 1206 INDICATION: lateral pain after twist injury COMPARISON: None available. FINDINGS: Prominent diffuse soft tissue swelling is seen. This is slightly more noticeable medially. No fractures or dislocations are seen. - Medical Decision Making 17-year-old -[place] female patient presents with complaints of sudden onset of lower abdominal pain x2 days. Patient states the pain suddenly worsened yesterday and she had some nausea and vomiting. Past medical history includes type 1 diabetes. Patient states she has not been taking insulin since last year due to moving out of her parents home. She denies any fever/chills/sweats, dysuria/hematuria/urinary frequency, hematemesis/coffee- ground emesis, diarrhea, melena/hematochezia, or prior abdominal surgeries. Last menstrual cycle was 05/30/2021. She does admit to dyspareunia and abnormal vaginal discharge. Patient rates her current pain as a 10/10 in severity X-rays negative for any fractures.Will treat patient for ankle sprain with NSAIDs, rice method, and crutches. Recommend follow-up with orthopedics as needed, referral provided. She is otherwise well-appearing, her vitals are within normal limits, she is stable for discharge home. Strict return precautions were discussed in detail with patient who verbalizes understanding Critical care attestation.: If time is entered above; I have spent that time in minutes in the direct care of this critically ill patient, excluding procedure time. ED Disposition Clinical Impression: Right ankle injury Disposition: HOME / SELF CARE / HOMELESS Is pt being admited?: No Condition: Stable Instructions: Ankle Sprain, [id number] Prescriptions: Naproxen [Naprosyn] 500 mg PO BID PRN #20 tab PRN Reason: pain Referrals: [facility] [Provider Group] - as needed Forms: Work/School Release Form(ED)
--- NOTE | 2021-06-18 12:30 | XRay Report ---
RIGHT ANKLE 3 VIEWS 1206 INDICATION: lateral pain after twist injury COMPARISON: None available. FINDINGS: Prominent diffuse soft tissue swelling is seen. This is slightly more noticeable medially. No fractures or dislocations are seen. Signer Name: Jersey Diez MD Signed: 06/18/2021 12:22 PM Workstation Name: [id number]
[2021-06-18 12:54] VITALS: BP 131/79
== END 2021-06-18 12:55 | disposition home or self-care (01) ==
LOC: ED 10:12
DX: S99.911A Unspecified injury of right ankle, initial encounter (principal); J45.909 Unspecified asthma, uncomplicated; X50.1XXA Overexertion from prolonged static or awkward postures, initial encounter; Y93.89 Activity, other specified; Y92.89 Other specified places as the place of occurrence of the external cause; Y99.8 Other external cause status; E10.9 Type 1 diabetes mellitus without complications
CPT/HCPCS: 99283